=== PATIENT | male | born 1960 | race Caucasian/White ===

== ENCOUNTER → 2020-05-23 | Outpatient (CLI) | payer MEDICAID | LOC: KOH-I 09:37 | DX: M79.671 Pain in right foot (principal); M19.071 Primary osteoarthritis, right ankle and foot; Z98.1 Arthrodesis status | CPT/HCPCS: 73630 ==

== ENCOUNTER → 2020-05-29 | Outpatient (CLI) | payer MEDICAID | LOC: KOH-I 10:30 | DX: M77.30 Calcaneal spur, unspecified foot (principal); M85.851 Other specified disorders of bone density and structure, right thigh | CPT/HCPCS: 73700 ==

== ENCOUNTER → 2020-06-06 | Outpatient (CLI) | payer MEDICARE, MEDICAID | LOC: KOH-I 10:11 | DX: M54.9 Dorsalgia, unspecified (principal); G89.29 Other chronic pain; S92.009A Unspecified fracture of unspecified calcaneus, initial encounter for closed fracture; L30.9 Dermatitis, unspecified; S34.101A Unspecified injury to L1 level of lumbar spinal cord, initial encounter | CPT/HCPCS: 72110 ==

== ENCOUNTER → 2021-08-13 | Outpatient (CLI) | payer MEDICARE | LOC: KOH-I 08:53 | DX: R07.81 Pleurodynia (principal); S22.41XA Multiple fractures of ribs, right side, initial encounter for closed fracture; X58.XXXA Exposure to other specified factors, initial encounter | CPT/HCPCS: 71101 ==